=== PATIENT | male | born 1995 | race African-American/Black ===

== ENCOUNTER 2022-12-28 11:47 | Inpatient (IN) | payer OTHER ==
[2022-12-28 12:30] VITALS: BMI 34.9
[2022-12-28] MEDS ORDERED: IBUPROFEN 600 MG TABLET (FP) PO PRN (13:42)
[2022-12-28] MEDS ORDERED: MAGNESIUM HYDROX 2400MG/30ML ORAL SUSPENSION 30 ML CUP PO PRN (13:42)
[2022-12-28] MEDS ORDERED: METHOCARBAMOL 500 MG TABLET PO PRN (13:42)
[2022-12-28] MEDS ORDERED: BENZONATATE 200 MG CAPSULE PO PRN (13:42)
[2022-12-28] MEDS ORDERED: NALOXONE HCL (KLOXXADO) 8 MG SPRAY NS PRN (13:42)
[2022-12-28] MEDS ORDERED: ACETAMINOPHEN 325 MG TABLET (FP) PO PRN (13:42)
[2022-12-28] MEDS ORDERED: BENZOCAINE/MENTHOL (CHLORASEPTIC ) LOZENGE MM PRN (13:42)
[2022-12-28] MEDS ORDERED: LORazepam 1 MG TABLET PO PRN (13:42)
[2022-12-28] MEDS ORDERED: ONDANSETRON *ODT* 4 MG TABLET SL PRN (13:42)
[2022-12-28] MEDS ORDERED: DICYCLOMINE HCL 10 MG CAPSULE PO PRN (13:42)
[2022-12-28] MEDS ORDERED: MAG HYDROX/AL HYDROX/SIMETH 30 ML UNIT-DOSE CUP PO PRN (13:42)
[2022-12-28] MEDS ORDERED: NALOXONE HCL 0.4 MG/ML VIAL IM PRN (13:42)
[2022-12-28] MEDS ORDERED: BISMUTH SUBSALICYLATE 262 MG/15 ML BTL PO PRN (13:42)
[2022-12-28] MEDS ORDERED: guaiFENesin 600 MG TABLET.ER (FP) PO PRN (13:42)
[2022-12-28] MEDS ORDERED: LOPERAMIDE HCL 2 MG CAPSULE PO PRN (13:42)
[2022-12-28] MEDS ORDERED: IBUPROFEN 400 MG TABLET (FP) PO PRN (13:42)
[2022-12-28] MEDS ORDERED: POLYETHYLENE GLYCOL (HEALTHYLAX) 3350 17 GM PACKET PO PRN (13:42)
[2022-12-28] MEDS ORDERED: hydrOXYzine PAMOATE 25 MG CAPSULE (FP) PO PRN (13:42)
[2022-12-28] MEDS ORDERED: PRENATAL VITAMINS W/ FOLIC ACID TABLET (FP) PO ONE (14:05)
[2022-12-28] MEDS: PRENATAL VITAMINS W/ FOLIC ACID TABLET (FP) PO SCH (14:06)
[2022-12-28] MEDS: LORazepam 2 MG TABLET PO SCH ×2 (17:25→22:27)
[2022-12-28] MEDS ORDERED: MELATONIN 5 MG TABLETS PO SCH (22:00)
[2022-12-28] MEDS: SUVOREXANT 10 MG TABLET PO PRN (22:27)
[2022-12-28] MEDS: THIAMINE HCL 100 MG TABLET (FP) PO SCH (22:28)
[2022-12-29] MEDS: LORazepam 2 MG TABLET PO SCH ×4 (06:00→22:03)
[2022-12-29] MEDS: PRENATAL VITAMINS W/ FOLIC ACID TABLET (FP) PO SCH (10:29)
[2022-12-29] MEDS: NICOTINE 7 MG/24 HOURS TOPICAL PATCH TD SCH (10:31)
[2022-12-29] MEDS: NICOTINE 14 MG/24 HOURS TOPICAL PATCH TD SCH (10:31)
[2022-12-29 10:43] LABS: HEMATOCRIT 33.9 % (35.4-49); HEMOGLOBIN 11.6 GM/dL (11.7-16.9); MCH 31.1 pg (25.7-33.7); MCHC 34.2 g/dl (32.0-35.9); PLATELET COUNT 350 10^3/uL (134-434); RBC 3.73 M/mm3 (4.00-5.60); RDW 14.4 % (11.9-15.9); WHITE BLOOD COUNT 2.6 K/mm3 (4.0-10.0)
[2022-12-29 10:48] LABS: POTASSIUM 4.2 mmol/L (3.5-5.1)
[2022-12-29 10:55] LABS: CALCIUM 8.5 mg/dL (8.5-10.1)
[2022-12-29 10:56] LABS: ALBUMIN 3.2 g/dl (3.4-5.0); BLOOD UREA NITROGEN 12.8 mg/dL (7-18)
[2022-12-29 10:59] LABS: CREATININE 0.7 mg/dL (0.55-1.3)
[2022-12-29 11:00] LABS: BILIRUBIN,TOTAL 0.5 mg/dL (0.2-1)
[2022-12-29] MEDS: THIAMINE HCL 100 MG TABLET (FP) PO SCH (22:03)
[2022-12-29] MEDS: SUVOREXANT 10 MG TABLET PO PRN (22:05)
[2022-12-30] MEDS ORDERED: LORazepam 1 MG TABLET PO SCH (05:00)
[2022-12-30 06:28] VITALS: BP 141/66; PULSE 88; RESP 18; TEMP 98.4
[2022-12-30] MEDS: NICOTINE 14 MG/24 HOURS TOPICAL PATCH TD SCH (09:51)
[2022-12-30] MEDS: NICOTINE 7 MG/24 HOURS TOPICAL PATCH TD SCH (09:52)
[2022-12-30] MEDS: PRENATAL VITAMINS W/ FOLIC ACID TABLET (FP) PO SCH (09:52)
[2022-12-31] MEDS ORDERED: LORazepam 0.5 MG TABLET PO PRN
[2022-12-31] MEDS ORDERED: LORazepam 0.5 MG TABLET PO SCH (05:00)
[2023-01-01] MEDS ORDERED: LORazepam 0.5 MG TABLET PO ONE (05:00)
== END 2022-12-30 09:55 | disposition left against medical advice (07) | DRG 770 ==
LOC: YASAS 11:47 → Y6N 14:07
PROVIDERS: ADMIT Allergy & Immunology; ATTEND Surgery
PROC: HZ2ZZZZ Detoxification Services for Substance Abuse Treatment (ICD-10-PCS; principal; 2022-12-28)
DX: F10.230 Alcohol dependence with withdrawal, uncomplicated (principal); F14.20 Cocaine dependence, uncomplicated; F12.20 Cannabis dependence, uncomplicated; F17.213 Nicotine dependence, cigarettes, with withdrawal; F10.280 Alcohol dependence with alcohol-induced anxiety disorder; D72.810 Lymphocytopenia; E66.09 Other obesity due to excess calories; Z68.35 Body mass index [BMI] 35.0-35.9, adult; R03.0 Elevated blood-pressure reading, without diagnosis of hypertension; R73.9 Hyperglycemia, unspecified; Z28.310 Unvaccinated for COVID-19; Z28.9 Immunization not carried out for unspecified reason
CPT/HCPCS: 36415; 80053; 85027; 86593; 86780; 87635; 87811; 93005; 93010

== ENCOUNTER 2023-08-26 12:11 | Inpatient (IN) | payer OTHER ==
[2023-08-26 13:55] VITALS: BMI 36.1
[2023-08-26] MEDS ORDERED: POLYETHYLENE GLYCOL (HEALTHYLAX) 3350 17 GM PACKET PO PRN (16:53)
[2023-08-26] MEDS ORDERED: DICYCLOMINE HCL 10 MG CAPSULE PO PRN (16:53)
[2023-08-26] MEDS ORDERED: NALOXONE HCL 0.4 MG/ML VIAL IM PRN (16:53)
[2023-08-26] MEDS ORDERED: LOPERAMIDE HCL 2 MG CAPSULE PO PRN (16:53)
[2023-08-26] MEDS ORDERED: MAG HYDROX/AL HYDROX/SIMETH 30 ML UNIT-DOSE CUP PO PRN (16:53)
[2023-08-26] MEDS ORDERED: ONDANSETRON *ODT* 4 MG TABLET SL PRN (16:53)
[2023-08-26] MEDS ORDERED: NALOXONE (NARCAN) HCL 4 MG/0.1 ML SPRAY NS PRN (16:53)
[2023-08-26] MEDS ORDERED: BENZOCAINE/MENTHOL (CHLORASEPTIC ) LOZENGE MM PRN (16:53)
[2023-08-26] MEDS ORDERED: BENZONATATE 200 MG CAPSULE PO PRN (16:53)
[2023-08-26] MEDS ORDERED: ACETAMINOPHEN 325 MG TABLET (FP) PO PRN (16:53)
[2023-08-26] MEDS ORDERED: IBUPROFEN 400 MG TABLET (FP) PO PRN (16:53)
[2023-08-26] MEDS ORDERED: guaiFENesin 600 MG TABLET.ER (FP) PO PRN (16:53)
[2023-08-26] MEDS ORDERED: MAGNESIUM HYDROX 2400MG/30ML ORAL SUSPENSION 30 ML CUP PO PRN (16:53)
[2023-08-26] MEDS: IBUPROFEN 600 MG TABLET (FP) PO PRN (18:01)
[2023-08-26] MEDS: METHOCARBAMOL 500 MG TABLET PO PRN (18:01)
[2023-08-26] MEDS: chlordiazePOXIDE HCL 25 MG CAPSULE PO PRN (18:02)
[2023-08-26] MEDS: hydrOXYzine PAMOATE 25 MG CAPSULE (FP) PO PRN (18:04)
[2023-08-26] MEDS: cloNIDine HCL 0.1 MG TABLET PO ONE (22:05)
[2023-08-26] MEDS: THIAMINE 100 MG TABLET PO SCH (22:05)
[2023-08-26] MEDS: MELATONIN 5 MG TABLETS PO SCH (22:05)
[2023-08-26] MEDS: chlordiazePOXIDE HCL 25 MG CAPSULE PO SCH (22:06)
[2023-08-27] MEDS: BICTEGRAV/EMTRICIT/TENOFOV (BIKTARVY) 50-200-25 MG TABLET PO SCH (10:53)
[2023-08-27] MEDS: PRENATAL VITAMINS W/ FOLIC ACID TABLET (FP) PO SCH (10:53)
[2023-08-27] MEDS: amLODIPine BESYLATE 5 MG TABLET (FP) PO ONE (18:56)
[2023-08-28] MEDS: chlordiazePOXIDE HCL 25 MG CAPSULE PO SCH (05:41)
[2023-08-28] MEDS: BISMUTH SUBSALICYLATE 524 MG/30 ML PO PRN (10:13)
[2023-08-28] MEDS: amLODIPine BESYLATE 10 MG TABLET (FP) PO SCH (16:01)
[2023-08-28] MEDS: cloNIDine HCL 0.1 MG TABLET PO ONE (18:45)
[2023-08-28] MEDS: SUVOREXANT 10 MG TABLET PO PRN (22:31)
[2023-08-29] MEDS: chlordiazePOXIDE HCL 10 MG CAPSULE PO SCH (05:59)
[2023-08-29] MEDS: chlordiazePOXIDE HCL 10 MG CAPSULE PO PRN (13:19)
[2023-08-29] MEDS: cloNIDine HCL 0.1 MG TABLET PO PRN (17:33)
[2023-08-30] MEDS: chlordiazePOXIDE HCL 10 MG CAPSULE PO SCH (06:00)
[2023-08-30 12:26] LABS: BASO % 0.8 % (0-2.0); EOS % 4.9 % (0-4.5); HEMOGLOBIN 12.4 GM/dL (11.7-16.9); LYMPH % 28.6 % (8-40); MCH 31.5 pg (25.7-33.7); MCHC 34.4 g/dl (32.0-35.9); MEAN CELL VOLUME 91.4 fl (80-96); MEAN PLT VOLUME 7.3 fl (7.5-11.1); MONO % 14.5 % (3.8-10.2); NEUT % 51.2 % (42.8-82.8); PLATELET COUNT 377 10^3/uL (134-434); RBC 3.94 M/mm3 (4.00-5.60); RDW 15.8 % (11.9-15.9); WHITE BLOOD COUNT 3.9 K/mm3 (4.0-10.0)
[2023-08-30 12:28] LABS: POTASSIUM 4.6 mmol/L (3.5-5.1)
[2023-08-30 12:32] LABS: CALCIUM 8.5 mg/dL (8.5-10.1)
[2023-08-30 12:33] LABS: BLOOD UREA NITROGEN 15.4 mg/dL (7-18)
[2023-08-30 12:36] LABS: CREATININE 0.8 mg/dL (0.55-1.3)
[2023-08-30 13:39] LABS: ANISOCYTOSIS 0; MACROCYTOSIS 0; OVALOCYTE 1+
[2023-08-30] MEDS: MINERAL OIL/PETROLAT/WATER TOPICAL CREAM 454 GM JAR TP PRN (21:35)
[2023-08-30] MEDS: cloNIDine HCL 0.1 MG TABLET PO ONE (23:50)
[2023-08-31] MEDS: chlordiazePOXIDE HCL 10 MG CAPSULE PO ONE (05:56)
[2023-09-01 06:19] VITALS: BP 143/95; PULSE 78; RESP 16; TEMP 98.6
== END 2023-09-01 11:09 | disposition other institution (70) | DRG 774 ==
LOC: YASAS 12:11 → Y3N 14:20
PROVIDERS: ADMIT Allergy & Immunology; ATTEND Surgery
PROC: HZ2ZZZZ Detoxification Services for Substance Abuse Treatment (ICD-10-PCS; principal; 2023-08-26)
DX: F10.230 Alcohol dependence with withdrawal, uncomplicated (principal); F13.20 Sedative, hypnotic or anxiolytic dependence, uncomplicated; F14.20 Cocaine dependence, uncomplicated; F12.20 Cannabis dependence, uncomplicated; F17.210 Nicotine dependence, cigarettes, uncomplicated; F19.24 Other psychoactive substance dependence with psychoactive substance-induced mood disorder; F32.A Depression, unspecified; F41.1 Generalized anxiety disorder; B20 Human immunodeficiency virus [HIV] disease; Z79.899 Other long term (current) drug therapy; G40.909 Epilepsy, unspecified, not intractable, without status epilepticus; J45.909 Unspecified asthma, uncomplicated
CPT/HCPCS: 36415; 80048; 80305; 80307; 85025